=== PATIENT | male | born 1975 | race Caucasian/White ===

== ENCOUNTER 2024-05-22 10:22 | Emergency (ER) | payer MEDICAID ==
[~2024-05-22] VITALS: Ht 172.7 cm; Wt 81.0 kg
[2024-05-22 10:37] VITALS: O2SAT 98
[2024-05-22 11:05] LABS: BASOPHILS % 0.5 % (0.0-2.0); EOSINOPHILS % 1.2 % (0.0-5.0); HEMATOCRIT. 50.1 % (42.0-52.0); HEMOGLOBIN. 16.4 g/dL (14.0-18.0); LYMPHOCYTES % 47.6 % (20.0-50.0); MEAN CORPUSCULAR HEMOGLOBIN 29.1 pg (28.0-32.0); MEAN CORPUSCULAR HGB CONC 32.8 g/dL (31.0-37.0); MEAN CORPUSCULAR VOLUME 88.6 fL (80.0-94.0); MEAN PLATELET VOLUME 7.8 fl (7.4-10.4); MONOCYTES % 5.3 % (2.0-8.0); NEUTROPHILS % 45.4 % (40.0-76.0); PLATELET 220 x1000/uL (130-400); RED BLOOD CELL COUNT 5.65 mill/uL (4.7-6.1); RED CELL DISTRIBUTION WIDTH 12.8 % (11.6-14.6); WHITE BLOOD COUNT 5.3 x1000/uL (4.5-11.0)
[2024-05-22 11:10] LABS: CHLORIDE 106 mEq/L (98-107); POTASSIUM 4.3 mEq/L (3.5-5.1); SODIUM 140 mEq/L (136-145)
[2024-05-22 11:11] LABS: CALCIUM 9.3 mg/dL (8.7-10.4); CARBON DIOXIDE 29 mEq/L (21-32)
[2024-05-22 11:16] LABS: CREATININE 0.8 mg/dL (0.6-1.3); GLUCOSE 104 mg/dL (70-105)
[2024-05-22 11:17] LABS: ALANINE AMINOTRANSFERASE 17 IU/L (10-49); ASPARTATE AMINOTRANSFERASE 45 IU/L (<34)
[2024-05-22 11:18] LABS: BILIRUBIN DIRECT 0.2 mg/dL (<=3.0); BILIRUBIN TOTAL 0.7 mg/dL (0.1-1.0); PROTEIN TOTAL 7.8 g/dL (6.0-8.3)
[2024-05-22 11:42] LABS: UREA NITROGEN BLOOD < 5 mg/dL (9-23)
[2024-05-22 12:22] LABS: CLARITY URINE CLEAR (CLEAR); COLOR URINE YELLOW (YELLOW); GLUCOSE URINE NEGATIVE (NEGATIVE); KETONES URINE NEGATIVE (NEGATIVE); LEUKOCYTE ESTERASE URINE NEGATIVE (NEGATIVE); NITRITE URINE NEGATIVE (NEGATIVE); OCCULT BLOOD URINE NEGATIVE (NEGATIVE); PH URINE 8.5 (4.5-8.0); PROTEIN URINE NEGATIVE (NEGATIVE); SPECIFIC GRAVITY URINE 1.005 (1.005-1.030); UROBILINOGEN URINE 0.2 E.U./dL (0.2-1.0)
[2024-05-22] MEDS ORDERED: DOCU-150 MT (12:39)
[2024-05-22] MEDS ORDERED: POLY17PO3 MT (12:39)
[2024-05-22] MEDS ORDERED: PHEN51CR24 TP (12:39)
[2024-05-22 12:49] VITALS: BP 144/73; PULSE 76; RESP 18; TEMP 36.94740; O2SAT 98
== END 2024-05-22 13:18 | disposition home or self-care (01) ==
LOC: ER 10:22
DX: K59.00 Constipation, unspecified (principal); K64.4 Residual hemorrhoidal skin tags; E78.00 Pure hypercholesterolemia, unspecified; Z87.19 Personal history of other diseases of the digestive system
CPT/HCPCS: 36415; 80048; 80076; 81003; 85025; 86850; 86900; 99283